=== PATIENT | male | born 1960 | race Caucasian/White ===

== ENCOUNTER 2020-11-20 05:42 | Observation (INO) | payer BC ==
[2020-11-18 14:33] LABS: BASOPHILS # (AUTO) 0.1 (0.0-0.1); BASOPHILS % 0.9 % (0.0-1.0); EOSINOPHILS # (AUTO) 0.8 (0.0-0.4); EOSINOPHILS % 7.9 % (0.0-6.0); HEMATOCRIT 51.8 % (38.2-49.6); HEMOGLOBIN 17.7 g/dL (14.0-18.0); LYMPHOCYTES # (AUTO) 1.4 (1.0-3.2); LYMPHOCYTES % 14.9 % (18.0-39.1); MEAN CORPUSCULAR HEMOGLOBIN 32.5 pg (28-32); MEAN CORPUSCULAR HGB CONC 34.2 g/dL (31-35); MEAN CORPUSCULAR VOLUME 95.2 fL (81-99); MONOCYTES # (AUTO) 0.9 (0.2-0.8); MONOCYTES % 9.7 % (4.4-11.3); NEUTROPHILS # (AUTO) 6.4 (2.1-6.9); NEUTROPHILS % 66.2 % (38.7-80.0); PLATELET COUNT 173 x10e3/uL (140-360); RED BLOOD COUNT 5.44 x10e6/uL (4.3-5.7); RED CELL DISTRIBUTION WIDTH 13.5 % (11.7-14.4)
[2020-11-18 14:55] LABS: ANION GAP 14.1 mmol/L (8-16); BLOOD UREA NITROGEN 5 mg/dL (7-26); BUN/CREATININE RATIO 6 (6-25); CALCIUM 9.6 mg/dL (8.4-10.2); CARBON DIOXIDE 32 mmol/L (22-29); CHLORIDE 87 mmol/L (98-107); CREATININE, SERUM 0.83 mg/dL (0.72-1.25); EST GLOMERULAR FILTRATION RATE > 60 ML/MIN (60-); GLUCOSE 120 mg/dL (74-118); INR 0.98; POTASSIUM 5.1 mmol/L (3.5-5.1); PROTHROMBIN TIME 13.6 seconds (11.9-14.5); SODIUM 128 mmol/L (136-145)
[2020-11-18 14:56] LABS: PARTIAL THROMBOPLASTIN TIME 26.9 seconds (23.8-35.5)
[2020-11-20] VITALS (7 sets, daily range): BP systolic 135–188; BP diastolic 74–90
[~2020-11-20] VITALS: Ht 172.7 cm; Wt 106.1 kg
[~2020-11-20 05:42] MED LIST: ALBUTEROL1.25 MG/3 NEB; ASPIR 8181 MG PO; ATENOLOL50 MG PO; ATORVASTATIN CA20 MG PO; CLONIDINE HCL0.1 MG PO; LOSARTAN POTAS100 MG PO; METOPROLOL TART50 MG PO; MULTI-VITAMIN1 EACH PO; NORCO 7.5-3251 EACH PO; TRIAMTERENE-HCTZ1 EA PO
[2020-11-20] MEDS ORDERED: PROAIR HFA INH8.5 GM INH (05:48)
[2020-11-20] MEDS ORDERED: CEFAZOLIN SOD 1 GM/NS 50ML 100 ML IV ONE (05:58)
[2020-11-20 06:35] LABS: ANION GAP 16.4 mmol/L (8-16); BLOOD UREA NITROGEN 6 mg/dL (7-26); BUN/CREATININE RATIO 8 (6-25); CALCIUM 8.9 mg/dL (8.4-10.2); CARBON DIOXIDE 27 mmol/L (22-29); CHLORIDE 92 mmol/L (98-107); CREATININE, SERUM 0.74 mg/dL (0.72-1.25); EST GLOMERULAR FILTRATION RATE > 60 ML/MIN (60-); GLUCOSE 106 mg/dL (74-118); POTASSIUM 4.4 mmol/L (3.5-5.1); SODIUM 131 mmol/L (136-145)
[2020-11-20] MEDS ORDERED: BUPIVACAINE 0.5%/EPI 30 ML SDV INJ ONE (06:43)
[2020-11-20] MEDS ORDERED: THROMBIN FOR SOLN 5,000 UNIT VIAL ONE (06:43)
[2020-11-20] MEDS ORDERED: VANCOMYCIN HCL 1 GM VIAL ONE (06:43)
[2020-11-20] MEDS ORDERED: ACETAMINOPHEN 1000 MG/100 ML 100 ML IV ONE (07:10)
[2020-11-20] MEDS ORDERED: IBUPROFEN 800MG/ 200ML 200 ML IV ONE (07:10)
[2020-11-20] MEDS ORDERED: LIDOCAINE HCL (LTA) 4 ML SOLN ONE (07:10)
[2020-11-20] MEDS ORDERED: HYDROCODON-ACE1 EA12 PO (08:48)
[2020-11-20] MEDS: METOPROLOL TARTRATE 50 MG TAB PO SCH (09:00)
[2020-11-20] MEDS: LACTATED RINGER'S 1,000 ML IV SCH ×3 (09:00→23:14)
[2020-11-20] MEDS ORDERED: ONDANSETRON HCL INJ 2MG/ML 2ML 2 MG/ML VIAL IV PRN (09:00)
[2020-11-20] MEDS ORDERED: HYDROMORPHONE 2MG/ML 2 MG/ML ML IV PRN (09:00)
[2020-11-20] MEDS ORDERED: ACETAMINOPHEN 325 MG TAB PO PRN (09:00)
[2020-11-20] MEDS ORDERED: CARISOPRODOL 350 MG TAB PO PRN (09:00)
[2020-11-20] MEDS ORDERED: MORPHINE SULFATE 5 MG/ML VIAL IM PRN (09:00)
[2020-11-20] MEDS ORDERED: CEPACOL SORE THROAT LOZENGES PO PRN (09:00)
[2020-11-20] MEDS ORDERED: MAGNESIUM/ALUMINUM/SIMETHICONE 30 ML UDC PO PRN (09:00)
[2020-11-20] MEDS ORDERED: CLONIDINE HCL 0.1 MG TAB PO SCH (09:00)
[2020-11-20] MEDS ORDERED: OXYCODONE/ACETAMINOPHEN 5-325 1 EACH TABLET PO PRN (09:00)
[2020-11-20] MEDS: LOSARTAN POTASSIUM 100 MG TAB PO SCH (09:00)
[2020-11-20] MEDS ORDERED: NON-FORMULARY MEDICATION (Albuterol Sulfate 1 INH) NEB PRN (09:00)
[2020-11-20] MEDS ORDERED: ZOLPIDEM TARTRATE 5 MG TAB PO PRN (09:00)
[2020-11-20] MEDS ORDERED: ALBUTEROL SULFATE HFA 8GM INHALATION AEROSOL INH SCH (09:00)
[2020-11-20] MEDS ORDERED: PROMETHAZINE HCL (IM) 25 MG/ML VIAL IM PRN ×2 (09:00→12:30)
[2020-11-20] MEDS ORDERED: SUGAMMADEX SODIUM 200 MG/2 ML VIAL IV ONE (09:01)
[2020-11-20] MEDS ORDERED: ALBUTEROL SULFATE HFA 8GM INHALATION AEROSOL INH PRN ×2 (12:30)
[2020-11-20] MEDS: CEFAZOLIN SOD 1 GM/NS 50ML 50 ML IV SCH ×2 (15:26→19:54)
[2020-11-20] MEDS ORDERED: SODIUM CHLORIDE 0.9% 250ML 250 ML ONE (15:30)
[2020-11-20] MEDS ORDERED: SEVOFLURANE INHAL SOLN 250 ML PEN BTL ONE (16:28)
[2020-11-20] MEDS ORDERED: NEOSTIGMINE 1 MG/ML 10ML VIAL ONE (16:28)
[2020-11-20] MEDS ORDERED: LIDOCAINE HCL 2% LOCAL INJ 5 ML SDV VIAL INJ ONE (16:28)
[2020-11-20] MEDS ORDERED: DEXAMETHASONE SOD PHOS INJ 4 MG/ML VIAL ONE (16:28)
[2020-11-20] MEDS ORDERED: ROCURONIUM BROMIDE 10 MG/ML 5ML VIAL IV ONE (16:28)
[2020-11-20] MEDS ORDERED: PROPOFOL IV EMULSION 10 MG/ML 20 ML VIAL ONE (16:28)
[2020-11-20] MEDS ORDERED: POVIDONE IODINE 0.05% 0.05 % ML PO ONE (16:28)
[2020-11-20] MEDS ORDERED: GLYCOPYRROLATE INJ 0.2 MG/ML VIAL ONE (16:28)
[2020-11-20] MEDS ORDERED: ONDANSETRON HCL INJ 2MG/ML 2ML 2 MG/ML VIAL ONE (16:28)
[2020-11-20] MEDS ORDERED: LIDOCAINE HCL 2% JELLY 5 ML TUBE ONE (16:28)
[2020-11-20] MEDS ORDERED: MIDAZOLAM HCL 2 MG/2 ML VIAL ONE (16:54)
[2020-11-20] MEDS ORDERED: FENTANYL CITRATE/PF 100MCG/2 ML INJ ONE (16:54)
[2020-11-20] MEDS: CLONIDINE HCL 0.1 MG TAB PO SCH ×2 (17:00→19:55)
[2020-11-20] MEDS ORDERED: ATORVASTATIN 20 MG TAB PO SCH (21:00)
[2020-11-20] MEDS ORDERED: ATORVASTATIN 40 MG TAB PO SCH (21:00)
[2020-11-21 00:05] VITALS: BP 151/84
[2020-11-21] MEDS: OXYCODONE/ACETAMINOPHEN 5-325 1 EACH TABLET PO PRN ×2 (02:17→08:57)
[2020-11-21] MEDS: CEFAZOLIN SOD 1 GM/NS 50ML 50 ML IV SCH (04:16)
[2020-11-21 04:46] VITALS: BP 127/58
[2020-11-21 08:01] VITALS: BP 147/79
[2020-11-21 08:45] VITALS: BP 147/79
[2020-11-21] MEDS ORDERED: ONDANSETRON HCL 4 MG ORAL DISINTEGRATING TAB PO PRN (08:45)
[2020-11-21] MEDS: LOSARTAN POTASSIUM 100 MG TAB PO SCH (08:52)
[2020-11-21] MEDS: METOPROLOL TARTRATE 50 MG TAB PO SCH (08:53)
[2020-11-21] MEDS: LACTATED RINGER'S 1,000 ML IV SCH (08:53)
[2020-11-21] MEDS: CLONIDINE HCL 0.1 MG TAB PO SCH (08:53)
== END 2020-11-21 09:54 | disposition home or self-care (01) ==
LOC: OR 05:42 → PACU V 10:59 → MED/SURG 12:06
PROVIDERS: ADMIT Neurological Surgery; ATTEND Neurological Surgery
DX: M50.021 Cervical disc disorder at C4-C5 level with myelopathy (principal); Z20.822 Contact with and (suspected) exposure to COVID-19; Z01.818 Encounter for other preprocedural examination
CPT/HCPCS: 20931; 22551; 22845; 36415 ×2; 71046; 72040; 77003; 80048 ×2; 85025; 85610; 85730; 86850; 86900; 88304; 93005; G0378 ×2; J0131; J0690 ×2; J1100; J2001 ×2; J2250; J2405; J2704; J2710; J3010; J3370; J7050; J7121; U0002; C1713; C9359

== ENCOUNTER → 2020-12-18 | Outpatient (CLI) | payer BC ==
[~2020-12-18] MED LIST changes: +HYDROCODON-ACE1 EA12 PO; +PROAIR HFA INH8.5 GM INH
== END ==
LOC: RAD 11:55
PROVIDERS: ATTEND Neurological Surgery
DX: M50.20 Other cervical disc displacement, unspecified cervical region (principal); M43.22 Fusion of spine, cervical region
CPT/HCPCS: 72050

== ENCOUNTER → 2024-01-26 | Outpatient (REF) | payer OTHER ==
[~2024-01-26] MED LIST changes: +IOPAMIDOL 370 MG/ML 100 ML INFUS..BTL INJ ONE; +METOPROLOL TARTRATE INJ 1 MG/ML VIAL ONE; +NITROGLYCERIN 0.4 MG SUBL ONE; +SODIUM CHLORIDE 0.9% 100 ML ONE
[2024-01-26 08:41] LABS: CREATININE, SERUM 0.84 mg/dL (0.72-1.25)
== END ==
LOC: CT 07:14
PROVIDERS: ATTEND Internal Medicine Cardiovascular Disease
DX: I25.118 Atherosclerotic heart disease of native coronary artery with other forms of angina pectoris (principal)
CPT/HCPCS: 36415; 75574; 82565; 84520; J7050; Q9967